=== PATIENT | female | born 1975 | race Caucasian/White ===

== ENCOUNTER 2018-08-18 06:25 | Day surgery (SDC) | payer BC ==
[~2018-08-18 06:25] MED LIST: Sodium Chloride 0.9% 10 ML SDV IV PRN; Sodium Chloride 0.9% 10 ML Syringe FLUSH PRN; Sodium Chloride 0.9% 2.5 ML Syringe FLUSH PRN; ceFAZolin 1 GM in Premix Bag 1 BAG IV ONE
[2018-08-18] MEDS: Lactated Ringers 1,000 ML IV SCH ×2 (07:05→16:01)
[2018-08-18] MEDS ORDERED: Fluorescein 5 ML Vial ONE (07:16)
[2018-08-18] MEDS ORDERED: Methylene Blue 50 MG/10 ML Ampule ONE (07:16)
[2018-08-18] MEDS ORDERED: Rocuronium 100 MG/10 ML Syringe ONE (07:19)
[2018-08-18] MEDS ORDERED: Scopolamine 1.5 MG Transdermal Patch TRDERM PRN (07:19)
[2018-08-18] MEDS ORDERED: Midazolam 1 MG/ML 2 ML SDV ONE (07:19)
[2018-08-18] MEDS ORDERED: fentaNYL 100 MCG/2 ML SDV ONE (07:19)
[2018-08-18] MEDS ORDERED: Ondansetron 4 MG/2 ML SDV ONE (07:19)
[2018-08-18] MEDS ORDERED: Lidocaine 2% 5 ML SDV ONE (07:19)
[2018-08-18] MEDS ORDERED: Propofol 200 MG/20 ML SDV ONE (07:20)
[2018-08-18] MEDS ORDERED: Bupivacaine 0.25% 10 ML SDV ONE (07:26)
--- NOTE | 2018-08-18 07:27 | PCM.PREANE ---
Preanesthetic Assessment - Anesthesia/Transfusion/Family Hx Anesthesia History: Prior Anesthesia Without Reaction (seems sensative to narcotics, doesnt like the feeling from fentanyl) Family History of Anesthesia Reaction: No Transfusion History: No Prior Transfusion(s) - Review of Systems General: No Symptoms Pulmonary: No Symptoms Cardiovascular: No Symptoms Gastrointestinal: No Symptoms Neurological: No Symptoms Other: Reports: None - Physical Assessment O2 Sat by Pulse Oximetry: 100 Respiratory Rate: 16 Vital Signs: Last Vital Signs Temp 97.5 F 08/18/18 06:40 Pulse 63 08/18/18 06:40 Resp 16 08/18/18 06:40 BP 110/73 08/18/18 06:40 Pulse Ox 100 08/18/18 06:40 Height: 5 ft 5.5 in Weight: 51.256 kg ASA Class: 2 Mental Status: Alert & Oriented x3 Airway Class: Mallampati = 1 Dentition: Reports: Normal Dentition ROM/Head Extension: Full Lungs: Clear to Auscultation, Normal Respiratory Effort Cardiovascular: Regular Rate, Regular Rhythm - Lab Values: Laboratory Last Values WBC 6.80 K/uL (4.0-11.0) 08/18/18 07:02 RBC 4.23 M/uL (4.30-5.90) L 08/18/18 07:02 Hgb 12.8 g/dL (12.0-16.0) 08/18/18 07:02 Hct 39.1 % (36.0-46.0) 08/18/18 07:02 MCV 92.4 fL (80.0-98.0) 08/18/18 07:02 MCH 30.3 pg (27.0-32.0) 08/18/18 07:02 MCHC 32.7 g/dL (31.0-37.0) 08/18/18 07:02 RDW Std Deviation 47.5 fl (28.0-62.0) 08/18/18 07:02 RDW Coeff of Shane 14 % (11.0-15.0) 08/18/18 07:02 Plt Count 269 K/uL (150-400) 08/18/18 07:02 MPV 10.40 fL (7.40-12.00) 08/18/18 07:02 Nucleated RBC % 0.0 /100WBC 08/18/18 07:02 Nucleated RBCs # 0 K/uL 08/18/18 07:02 - Allergies Allergies/Adverse Reactions: Allergies Allergy/AdvReac Type Severity Reaction Status Date / Time No Known Drug Allergies Allergy Other Verified 08/12/18 09:01 - Blood Blood Available: No - Anesthesia Plan Pre-Op Medication Ordered: Other (scop) - Acknowledgements Anesthesia Type Planned: General Anesthesia Pt an Appropriate Candidate for the Planned Anesthesia: Yes Alternatives and Risks of Anesthesia Discussed w Pt/Guardian: Yes Pt/Guardian Understands and Agrees with Anesthesia Plan: Yes Additional Comments: PMH: endometriosis, IBS-C PLAN: GET with small dose of intraoperative narcotic, titrate additional opioid in PACU as necessary PreAnesthesia Questionnaire HEENT History: Reports: None Cardiovascular History: Reports: None Respiratory History: Reports: None Gastrointestinal History: Reports: None Genitourinary History: Reports: None 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 Musculoskeletal History: Reports: None Neurological History: Reports: None Psychiatric History: Reports: None Endocrine/Metabolic History: Reports: None Hematologic History: Reports: None Immunologic History: Reports: None Oncologic (Cancer) History: Reports: None Dermatologic History: Reports: None - Past Surgical History Head Surgeries/Procedures: Reports: None HEENT Surgical History: Reports: Oral Surgery Other HEENT Surgeries/Procedures: wisdom teeth extraction Cardiovascular Surgical History: Reports: None Respiratory Surgical History: Reports: None GI Surgical History: Reports: Appendectomy Female Surgical History: Reports: Breast Biopsy, D&C, Other (See Below) Other Female Surgeries/Procedures: hx rt breast fibroadema removal, hx hysteroscopy with polypectomy and D&C Endocrine Surgical History: Reports: None Neurological Surgical History: Reports: None Musculoskeletal Surgical History: Reports: None Oncologic Surgical History: Reports: None Dermatological Surgical History: Reports: None - SUBSTANCE USE Tobacco Use Within Last Twelve Months: Snuff/Dip Recreational Drug Use History: No - HOME MEDS Home Medications: Home Meds . [No Known Home Meds] 08/12/18 [History] - CURRENT (IN HOUSE) MEDS Current Meds: Current Medications Lactated Ringer's (Ringers, Lactated) 1,000 mls @ 100 mls/hr IV ASDIRECTED JELANI Last Admin: 08/18/18 07:05 Dose: 100 mls/hr Sodium Chloride (Saline Flush) 10 ml FLUSH ASDIRECTED PRN PRN Reason: Keep Vein Open Sodium Chloride (Saline Flush) 2.5 ml FLUSH ASDIRECTED PRN PRN Reason: Keep Vein Open Sodium Chloride (Normal Saline) 10 ml IV ASDIRECTED PRN PRN Reason: IV Use Discontinued Medications Fluorescein Sodium (Ak-Fluor) Confirm Administered Dose 5 ml .ROUTE .STK-MED ONE Stop: 08/18/18 07:17 Cefazolin Sodium/Dextrose 1 gm (/ Premix) 50 mls @ 100 mls/hr IV ONETIME ONE Stop: 08/18/18 05:29 Methylene Blue (Provayblue) Confirm Administered Dose 50 mg .ROUTE .STK-MED ONE Stop: 08/18/18 07:17
[2018-08-18 07:29] LABS: CHLORIDE,CL 104 mmol/L (98-107); SODIUM,NA 139 mmol/L (136-145)
[2018-08-18] MEDS ORDERED: Ondansetron 4 MG/2 ML SDV IVPUSH PRN ×2 (07:47→10:23)
[2018-08-18] MEDS ORDERED: HYDROmorphone 2 MG/ML SDV IVPUSH PRN (07:47)
[2018-08-18] MEDS ORDERED: ceFAZolin 1 GM Vial ONE (08:13)
[2018-08-18] MEDS ORDERED: HYDROmorphone 2 MG/ML Syringe ONE ×2 (08:22→10:15)
[2018-08-18] MEDS ORDERED: Dexamethasone 4 MG/ML 5 ML MDV ONE (08:27)
[2018-08-18] MEDS ORDERED: Furosemide 40 MG/4 ML VIAL ONE (09:00)
[2018-08-18] MEDS ORDERED: Ketorolac 30 MG/ML SDV ONE (09:19)
[2018-08-18] MEDS ORDERED: Phenylephrine/Normal Saline 100 MCG/ML 10 ML Syringe ONE (09:30)
[2018-08-18] MEDS ORDERED: Glycopyrrolate 0.2 MG/ML SDV ONE (09:42)
[2018-08-18] MEDS ORDERED: Neostigmine Methylsulfate 1 MG/ML 5 ML Syringe ONE (09:42)
[2018-08-18] MEDS ORDERED: Promethazine 25 MG/ML SDV IM PRN (10:23)
[2018-08-18] MEDS ORDERED: Ketorolac 30 MG/ML SDV IVPUSH ONE (10:23)
[2018-08-18] MEDS ORDERED: Morphine 4 MG/ML Syringe IVPUSH PRN (10:23)
[2018-08-18] MEDS ORDERED: Acetaminophen/oxyCODONE 325-5 MG Tab PO PRN (10:23)
--- NOTE | 2018-08-18 10:35 | PCM.OPNOTE ---
- General Post-Op/Procedure Note Date of Surgery/Procedure: 08/18/18 Operative Procedure(s): LAVH/BSO/Cystoscopy Findings: 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 along right ovary, uterosacral/peritoneal adhesions consistent with endometriosis Pre Op Diagnosis: 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. Pelvic pain and dyspareunia Post-Op Diagnosis: Same Anesthesia Technique: General ET Tube Primary Surgeon: Barbie Mcduffie Auditor Appraiser: Berta Longo Pathology: uterus/tubes/ovaries Fluid Replacement, Intraop: 1,100 EBL in mLs: 125 Complications: none known Condition: Stable Free Text/Narrative:: Dictation [id number]
--- NOTE | 2018-08-18 10:38 | PCM.POSTAN ---
POST ANESTHESIA ASSESSMENT - MENTAL STATUS Mental Status: Alert, Oriented - RESPIRATORY Respiratory Status: Respiratory Rate WNL, Airway Patent, O2 Saturation Stable - CARDIOVASCULAR CV Status: Pulse Rate WNL, Blood Pressure Stable - GASTROINTESTINAL GI Status: No Symptoms - PAIN Pain Score: 0 - POST OP HYDRATION Hydration Status: Adequate & Stable - OBSERVATIONS Free Text/Narrative:: The patient tolerated the procedure well. There were no apparent anesthetic complications at this time. Discharge per criteria.
[2018-08-18] MEDS ORDERED: HYDROmorphone 2 MG/ML SDV IVPUSH ONE (10:39)
--- NOTE | 2018-08-18 12:00 | OR ---
SURGEON: Barbie Mcduffie M.D. DATE OF PROCEDURE: 08/18/2018 PREOPERATIVE DIAGNOSES: 1. 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. 2. Pelvic pain and dyspareunia. POSTOPERATIVE DIAGNOSES: 1. 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. 2. Pelvic pain and dyspareunia. PROCEDURES: Laparoscopic-assisted vaginal hysterectomy, bilateral salpingo-oophorectomy, cystoscopy. PRIMARY SURGEON: Barbie Mcduffie MD. PRODUCTION MINER: Suki Longo. ANESTHESIA: General endotracheal anesthesia. ESTIMATED BLOOD LOSS: 125 mL. FLUIDS: 1100 mL crystalloid. COMPLICATIONS: None known. FINDINGS: Consistent with endometriosis along the right ovary and with the uterosacral peritoneal window adhesions. DISPOSITION: The patient to PACU in stable condition. PROCEDURE DETAILS: Isa is a 43-year-old, G0, who has a longstanding history of endometriosis. We have controlled conservatively at this juncture, although she is ready to proceed with definitive intervention in the form of hysterectomy. Risks of procedure have been discussed. Proper consent obtained. The patient was taken to the operating room where she underwent general endotracheal anesthesia, was placed in modified dorsal lithotomy position, was prepped and draped in the usual sterile fashion. SCDs to lower extremities. Drake to gravity. Received Ancef prophylactically. Time-out was performed. After being prepped and draped in usual sterile fashion, speculum was introduced in the vagina. Cervix was grasped with a single-tooth tenaculum along the anterior lip. Cervix gently dilated to 5 mm and a HUMI uterine manipulator was now placed. After balloon was insufflated, the speculum was removed from the vagina, gloves changed, attention turned abdominally. Infraumbilically, 0.25% Marcaine was introduced. Please see nurse's notes for total amount of local dispensed during the procedure. A 5 mm infraumbilical incision was created. Anterior abdominal wall tented upward. A Veress needle was gently introduced. Saline hanging drop test was performed. Pneumoperitoneum was achieved. The Veress needle was removed, 5 mm trocar was introduced. Laparoscope introduced and peritoneal contents were identified. Under direct visualization, left lower quadrant and right lower quadrant 5 mm trocars were introduced after prepping the regions with 0.25% Marcaine and creating 5 mm skin incisions. The uterus was mobile. Tubes and ovaries were also mobile. Ureters were seen peristalsing below the level of the operative field on either side. The patient was placed in Trendelenburg positioning. Along the left side, the utero tubo-ovarian complex was grasped and tented medially. The IFP was now isolated and secured with LigaSure, cauterized, transected. Further pedicle of the broad ligament down to the level of the round ligament was now secured, cauterized, and transected. The remainder of the pedicles including the round ligament, the upper portion of the cardinal ligament, lower portion of the cardinal ligament were now able to be secured, cauterized, and transected with LigaSure. Bladder flap was created anteriorly. Attention was now turned to the patient's right side. In a similar fashion, the infundibulopelvic ligament, broad ligament, through the round ligament, to the upper portion of the cardinal ligament, lower portion of the cardinal ligament to the level of the uterosacral ligament was able to be secured, cauterized, and transected with LigaSure. The bladder was mobilized nicely away from the cervix. At this juncture, I felt it was prudent to proceed vaginally, therefore, pneumoperitoneum was released. Laparoscopic instruments had been removed. The attention was turned vaginally. A weighted speculum was placed, anterior [place]. Cervix was grasped with Daphney clamp. Cervix tented downward and circumscribed with Bovie cautery posteriorly, anteriorly. The overlying mucosa was dissected away from the underlying peritoneum. Posterior peritoneum was tented downward and entered sharply. A longer weighted speculum replaced the shorter. Anteriorly, the anterior cul-de- sac was now also entered and a retractor was utilized to mobilize the bladder away from the operative field. Paulette clamp was placed on either side to secure the uterosacral ligament, transected, and suture ligated with 2-0 Vicryl. Further pedicle on either side was able to be secured, transected, and suture ligated. The uterus, tubes, and ovaries were now able to be removed, handed off to medical technologist microbiology to be sent to Pathology. Photographs have been taken per the patient's request of the uterus, bilateral tubes and ovaries laparoscopically. The right uterosacral ligament was now plicated to the right side of the vagina, in a similar fashion was performed on the patient's left side. The left uterosacral pedicle pulled through pretty easily with a suture, therefore, this was replaced with another suture after securing the pedicle with a Paulette clamp and then replicated to the vaginal apex on this side as well. Upper pedicles were inspected and found to be hemostatic. Therefore, attention was turned to closing the vaginal cuff. The cuff was closed using 0 Vicryl in continuous locked fashion. During this interval, IV fluorescein Lasix had been delivered via IV and the Drake balloon had been desufflated. Next, the cuff was closed, inspected, found to be hemostatic. The Drake catheter was removed. Cystoscope was introduced. Using normal saline, the bladder was visualized. [place] was able to be inspected, found to be intact. Trigone inspected. The left ureteral orifice followed by the right ureteral orifice able to be visualized and fluorescein dyed urine was seen streaming from them, helping to ensure ureteral patency. The bladder was now drained. The cystoscope was removed. The Drake catheter was placed. The vaginal cuff once again inspected and found to be hemostatic. Gloves changed. Attention was turned abdominally once again. Pneumoperitoneum was once again achieved. The pelvis was closely inspected after mobilizing the bowel away from the operative field. Region was copiously irrigated, suction dried. Areas of oozing along the midline of the cuff were now secured with LigaSure and cauterized. Hemostasis thereafter evident. Region was again copiously irrigated, suction dried. Relief pressure decreased to 5 mm. Once again, inspected the region, found to be hemostatic. Therefore, pneumoperitoneum was released. Laparoscopic instruments removed. The trocars removed from the right and left lower quadrant under direct visualization followed by laparoscope and infraumbilical trocar. The skin edges were reapproximated using 4-0 Monocryl in subcuticular fashion. Sponge, instrument, and needle count was correct x2. The patient tolerated the procedure well. She will go to PACU in stable condition, specimens to Pathology. AVN / RAE /[id number] GUMARO
[2018-08-18] MEDS: Acetaminophen/oxyCODONE 325-5 MG Tab PO PRN ×2 (14:58→19:42)
[2018-08-18] MEDS: Ketorolac 30 MG/ML SDV IVPUSH PRN ×2 (16:04→22:30)
[2018-08-18] MEDS: Docusate Sodium 100 MG Cap PO SCH (22:16)
[2018-08-19 07:32] LABS: CHLORIDE,CL 102 mmol/L (98-107); SODIUM,NA 135 mmol/L (136-145)
[2018-08-19] MEDS: Docusate Sodium 100 MG Cap PO SCH (08:19)
[2018-08-19 08:30] VITALS: BP 104/63
--- NOTE | 2018-08-19 09:16 | PCM.SURGPN ---
- General Info Date of Service: 08/19/18 POD#: 1 Functional Status: Reports: Pain Controlled, Tolerating Diet, Ambulating, Urinating - Review of Systems General: Denies: Fever, Weakness, Fatigue Pulmonary: Denies: Shortness of Breath Cardiovascular: Denies: Chest Pain, Palpitations, Lightheadedness Gastrointestinal: Reports: Flatus. Denies: Abdominal Pain, Nausea, Vomiting Genitourinary: Denies: Flank Pain Musculoskeletal: Reports: No Symptoms Skin: Reports: No Symptoms Neurological: Reports: No Symptoms Psychiatric: Reports: No Symptoms - Patient Data Vitals - Most Recent: Last Vital Signs Temp 37 C 08/19/18 07:30 Pulse 81 08/19/18 07:30 Resp 17 08/19/18 07:30 BP 104/63 08/19/18 07:30 Pulse Ox 99 08/19/18 07:30 Weight - Most Recent: 51.256 kg I&O - Last 24 Hours: Intake & Output 08/18/18 08/19/18 08/19/18 22:59 06:59 14:59 Intake Total 1342 Output Total 500 Balance 842 Lab Results Last 24 Hrs: Laboratory Results - last 24 hr 08/19/18 08/19/18 Range/Units 06:40 06:40 WBC 11.08 H (4.0-11.0) K/uL RBC 3.65 L (4.30-5.90) M/uL Hgb 11.1 L (12.0-16.0) g/dL Hct 33.4 L (36.0-46.0) % MCV 91.5 (80.0-98.0) fL MCH 30.4 (27.0-32.0) pg MCHC 33.2 (31.0-37.0) g/dL RDW Std Deviation 46.6 (28.0-62.0) fl RDW Coeff of Shane 14 (11.0-15.0) % Plt Count 249 (150-400) K/uL MPV 10.50 (7.40-12.00) fL Neut % (Auto) 64.3 (48.0-80.0) % Lymph % (Auto) 22.9 (16.0-40.0) % [place] % (Auto) 10.7 (0.0-15.0) % Eos % (Auto) 1.9 (0.0-7.0) % Baso % (Auto) 0.2 (0.0-1.5) % Neut # (Auto) 7.1 H (1.4-5.7) K/uL Lymph # (Auto) 2.5 H (0.6-2.4) K/uL [place] # (Auto) 1.2 H (0.0-0.8) K/uL Eos # (Auto) 0.2 (0.0-0.7) K/uL Baso # (Auto) 0.0 (0.0-0.1) K/uL Nucleated RBC % 0.0 /100WBC Nucleated RBCs # 0 K/uL Sodium 135 L (136-145) mmol/L Potassium 4.1 (3.5-5.1) mmol/L Chloride 102 (98-107) mmol/L Carbon Dioxide 23.4 (21.0-32.0) mmol/L BUN 9 (7.0-18.0) mg/dL Creatinine 0.9 (0.6-1.0) mg/dL Est Cr Clr Drug Dosing 66.56 mL/min Estimated GFR (MDRD) > 60.0 ml/min Glucose 89 (74-106) mg/dL Calcium 8.5 (8.5-10.1) mg/dL Med Orders - Current: Current Medications Docusate Sodium (Colace) 100 mg PO BID [facility] Last Admin: 08/19/18 08:19 Dose: 100 mg Estradiol (Climara) 0.1 mg TRDERM Q7D [facility] Last Admin: 08/18/18 18:04 Dose: Not Given Ketorolac Tromethamine (Toradol) 30 mg IVPUSH Q6H PRN PRN Reason: Pain (severe 7-10) Stop: 08/23/18 10:23 Last Admin: 08/18/18 22:30 Dose: 30 mg Morphine Sulfate (Morphine) 4 mg IVPUSH Q2H PRN PRN Reason: Pain (severe 7-10) Ondansetron HCl (Zofran) 4 mg IVPUSH Q6H PRN PRN Reason: Nausea/Vomiting Last Admin: 08/18/18 14:59 Dose: 4 mg Oxycodone/Acetaminophen (Percocet 325-5 Mg) 1 tab PO Q4H PRN PRN Reason: Pain (moderate 4-6) Last Admin: 08/18/18 19:42 Dose: 1 tab Oxycodone/Acetaminophen (Percocet 325-5 Mg) 2 tab PO Q4H PRN PRN Reason: Pain (moderate 4-6) Promethazine HCl (Phenergan) 25 mg IM Q6H PRN PRN Reason: Nausea/Vomiting Scopolamine (Transderm-Scop) 1.5 mg TRDERM Q72H PRN PRN Reason: Nausea/Vomiting Last Admin: 08/18/18 07:31 Dose: 1.5 mg Sodium Chloride (Saline Flush) 10 ml FLUSH ASDIRECTED PRN PRN Reason: Keep Vein Open Sodium Chloride (Saline Flush) 2.5 ml FLUSH ASDIRECTED PRN PRN Reason: Keep Vein Open Sodium Chloride (Normal Saline) 10 ml IV ASDIRECTED PRN PRN Reason: IV Use Discontinued Medications Bupivacaine HCl (Sensorcaine-Mpf 0.25%) Confirm Administered Dose 20 ml .ROUTE .STK-MED ONE Stop: 08/18/18 07:27 Cefazolin Sodium (Ancef) Confirm Administered Dose 1 gm .ROUTE .STK-MED ONE Stop: 08/18/18 08:14 Dexamethasone (Dexamethasone) Confirm Administered Dose 20 mg .ROUTE .STK-MED ONE Stop: 08/18/18 08:28 Fentanyl (Sublimaze) Confirm Administered Dose 100 mcg .ROUTE .STK-MED ONE Stop: 08/18/18 07:20 Fluorescein Sodium (Ak-Fluor) Confirm Administered Dose 5 ml .ROUTE .STK-MED ONE Stop: 08/18/18 07:17 Furosemide (Lasix) Confirm Administered Dose 40 mg .ROUTE .STK-MED ONE Stop: 08/18/18 09:01 Glycopyrrolate (Robinul) Confirm Administered Dose 0.4 mg .ROUTE .STK-MED ONE Stop: 08/18/18 09:43 Hydromorphone HCl (Dilaudid) 0.5 mg IVPUSH Q10M PRN PRN Reason: Pain (severe 7-10) Stop: 08/19/18 07:47 Last Admin: 08/18/18 10:17 Dose: 0.5 mg Hydromorphone HCl (Dilaudid) Confirm Administered Dose 2 mg .ROUTE .STK-MED ONE Stop: 08/18/18 08:23 Hydromorphone HCl (Dilaudid) Confirm Administered Dose 2 mg .ROUTE .STK-MED ONE Stop: 08/18/18 10:16 Last Admin: 08/18/18 10:39 Dose: 1 mg Hydromorphone HCl (Dilaudid) 1 mg IVPUSH ONETIME ONE Stop: 08/18/18 10:40 Last Admin: 08/18/18 13:53 Dose: Not Given Cefazolin Sodium/Dextrose 1 gm (/ Premix) 50 mls @ 100 mls/hr IV ONETIME ONE Stop: 08/18/18 05:29 Last Admin: 08/18/18 13:54 Dose: Not Given Lactated Ringer's (Ringers, Lactated) 1,000 mls @ 100 mls/hr IV ASDIRECTED JELANI Last Admin: 08/18/18 16:01 Dose: 100 mls/hr Acetaminophen (Ofirmev) Confirm Administered Dose 100 mls @ as directed IV .STK- MED ONE Stop: 08/18/18 07:18 Ketorolac Tromethamine (Toradol) Confirm Administered Dose 30 mg .ROUTE .STK- MED ONE Stop: 08/18/18 09:20 Lidocaine (Xylocaine-Mpf 2%) Confirm Administered Dose 5 ml .ROUTE .STK-MED ONE Stop: 08/18/18 07:20 Methylene Blue (Provayblue) Confirm Administered Dose 50 mg .ROUTE .STK-MED ONE Stop: 08/18/18 07:17 Midazolam HCl (Versed 1 Mg/Ml) Confirm Administered Dose 2 mg .ROUTE .STK-MED ONE Stop: 08/18/18 07:20 Neostigmine Methylsulfate (Neostigmine) Confirm Administered Dose 5 mg .ROUTE .STK-MED ONE Stop: 08/18/18 09:43 Ondansetron HCl (Zofran) Confirm Administered Dose 4 mg .ROUTE .STK-MED ONE Stop: 08/18/18 07:20 Ondansetron HCl (Zofran) 4 mg IVPUSH ONETIME PRN PRN Reason: Nausea/Vomiting Phenylephrine HCl (Phenylephrine In Ns 100 Mcg/Ml) Confirm Administered Dose 1 mg .ROUTE .STK-MED ONE Stop: 08/18/18 09:31 Propofol (Diprivan 20 Ml) Confirm Administered Dose 200 mg .ROUTE .STK-MED ONE Stop: 08/18/18 07:21 Rocuronium [place] (Zemuron) Confirm Administered Dose 100 mg .ROUTE .STK-MED ONE Stop: 08/18/18 07:20 Succinylcholine Chloride (Succinylcholine Chloride) Confirm Administered Dose 200 mg .ROUTE .STK-MED ONE Stop: 08/18/18 07:20 - Exam Wound/Incisions: Healing Well, Dressing Dry and Intact General: Alert, Oriented Lungs: Normal Respiratory Effort Cardiovascular: Regular Rate, Regular Rhythm GI/Abdominal Exam: Normal Bowel Sounds, Soft Extremities: Normal Inspection. No: Nahid's Sign Skin: Warm, Dry, Intact Neurological: No New Focal Deficit Psy/Mental Status: Alert, Normal Affect, Normal Mood - Problem List & Annotations (1) 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 SNOMED Code(s): 773499708 Code(s): N80.9 - ENDOMETRIOSIS, UNSPECIFIED Status: Acute Current Visit: Yes (2) Status post laparoscopic assisted vaginal hysterectomy SNOMED Code(s): 137027405, 86018266, 974421936 Code(s): Z90.710 - ACQUIRED ABSENCE OF BOTH CERVIX AND UTERUS Status: Acute Current Visit: Yes - Problem List Review Problem List Initiated/Reviewed/Updated: Yes - My Orders Last 24 Hours: Active Orders 24 hr Category Date Time Status Patient Status [ADT] Routine ADT 08/18/18 10:23 Active Antiembolic Devices [RC] PER UNIT ROUTINE Care 08/18/18 10:24 Active May Shower [RC] ASDIRECTED Care 08/18/18 10:23 Active Notify Provider Intake and Out [RC] ASDIRECTED Care 08/18/18 10:23 Active Notify Provider Vital Signs [RC] ASDIRECTED Care 08/18/18 10:23 Active Oxygen Therapy [RC] ASDIRECTED Care 08/18/18 10:23 Active RT Incentive Spirometry [RC] Q2HWA Care 08/18/18 10:23 Active Ready for Discharge [RC] PER UNIT ROUTINE Care 08/19/18 09:05 Ordered Up With Assistance [RC] PER UNIT ROUTINE Care 08/18/18 10:23 Active Up ad Lilly [RC] PER UNIT ROUTINE Care 08/18/18 10:23 Active Vital Signs [RC] PER UNIT ROUTINE Care 08/18/18 10:23 Active Regular Diet [DIET] Diet 08/18/18 Lunch Active Acetaminophen/oxyCODONE [Percocet 325-5 MG] Med 08/18/18 10:23 Active 1 tab PO Q4H PRN Acetaminophen/oxyCODONE [Percocet 325-5 MG] Med 08/18/18 10:23 Active 2 tab PO Q4H PRN Docusate Sodium [Colace] Med 08/18/18 21:00 Active 100 mg PO BID Estradiol [Climara] Med 08/18/18 10:30 Active 0.1 mg TRDERM Q7D Ketorolac [Toradol] Med 08/18/18 10:23 Active 30 mg IVPUSH Q6H PRN Morphine Med 08/18/18 10:23 Active 4 mg IVPUSH Q2H PRN Ondansetron [Zofran] Med 08/18/18 10:23 Active 4 mg IVPUSH Q6H PRN Promethazine [Phenergan] Med 08/18/18 10:23 Active 25 mg IM Q6H PRN Peripheral IV Discontinue [OM.PC] Routine Oth 08/18/18 10:23 Ordered Sequential Compression Device [OM.PC] Per Unit Routine Oth 08/18/18 10:23 Ordered Resuscitation Status Routine Resus Stat 08/18/18 10:23 Ordered Medication Orders Docusate Sodium (Colace) 100 mg PO BID [facility] Last Admin: 08/19/18 08:19 Dose: 100 mg Admin: 08/18/18 22:16 Dose: 100 mg Estradiol (Climara) 0.1 mg TRDERM Q7D [facility] Last Admin: 08/18/18 18:04 Dose: Not Given Ketorolac Tromethamine (Toradol) 30 mg IVPUSH Q6H PRN PRN Reason: Pain (severe 7-10) Stop: 08/23/18 10:23 Last Admin: 08/18/18 22:30 Dose: 30 mg Admin: 08/18/18 16:04 Dose: 30 mg Morphine Sulfate (Morphine) 4 mg IVPUSH Q2H PRN PRN Reason: Pain (severe 7-10) Ondansetron HCl (Zofran) 4 mg IVPUSH Q6H PRN PRN Reason: Nausea/Vomiting Last Admin: 08/18/18 14:59 Dose: 4 mg Oxycodone/Acetaminophen (Percocet 325-5 Mg) 1 tab PO Q4H PRN PRN Reason: Pain (moderate 4-6) Last Admin: 08/18/18 19:42 Dose: 1 tab Admin: 08/18/18 14:58 Dose: 1 tab Oxycodone/Acetaminophen (Percocet 325-5 Mg) 2 tab PO Q4H PRN PRN Reason: Pain (moderate 4-6) Promethazine HCl (Phenergan) 25 mg IM Q6H PRN PRN Reason: Nausea/Vomiting Scopolamine (Transderm-Scop) 1.5 mg TRDERM Q72H PRN PRN Reason: Nausea/Vomiting Last Admin: 08/18/18 07:31 Dose: 1.5 mg Sodium Chloride (Saline Flush) 10 ml FLUSH ASDIRECTED PRN PRN Reason: Keep Vein Open Sodium Chloride (Saline Flush) 2.5 ml FLUSH ASDIRECTED PRN PRN Reason: Keep Vein Open Sodium Chloride (Normal Saline) 10 ml IV ASDIRECTED PRN PRN Reason: IV Use - Assessment Assessment (Free Text/Narrative):: POD 1 status post LAVH/BSO/cystoscopy - Plan Plan (Free Text/Narrative):: Doing well overall--ambulating, voiding, pain well controlled. Discussed operative procedure and findings. Patient feels ready to go home. Discharge instructions reviewed. Infection and bleeding warnings reviewed. Follow up at [facility] 2 and 6 weeks. Patient would like to trial estrogen transdermally.
== END 2018-08-19 10:35 | disposition home or self-care (01) ==
LOC: MW.SDS 06:25 → MW.MS 11:11 → MW.SDS 08-19 10:35
PROVIDERS: ATTEND Obstetrics & Gynecology
DX: N80.0 Endometriosis of uterus (principal); N84.0 Polyp of corpus uteri; N80.1 Endometriosis of ovary; K66.0 Peritoneal adhesions (postprocedural) (postinfection); Z79.899 Other long term (current) drug therapy; F17.220 Nicotine dependence, chewing tobacco, uncomplicated
CPT/HCPCS: 36415; 58552; 80048; 84703; 85025; 85027; 86850; 86900; 86901; 88307; A9270; J0131; J0330; J0690; J1100; J1170; J1885; J1940; J2001; J2250; J2370; J2405; J2704; J3490; J7120; J3010